=== PATIENT | female | born 1955 | race African-American/Black ===

== ENCOUNTER 2017-01-04 09:27 | Emergency (ER) | payer MEDICARE ==
[~2017-01-04] VITALS: Ht 154.9 cm; Wt 81.6 kg
[~2017-01-04 09:27] MED LIST: BENZ100C PO; PRED50TA PO; RISP2TAB33 PO
[2017-01-04 09:35] VITALS: BP 130/74
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
[2017-01-04 10:02] LABS: BILIRUBIN,URINE NEGATIVE (NEG); GLUCOSE,URINE NEGATIVE (NEG); NITRITE,URINE NEGATIVE (NEG); PH,URINE 5.5; PROTEIN,URINE NEGATIVE (NEG-TRACE); UROBILINOGEN,URINE 0.2 mg/dL (0.2 mg/dL)
[2017-01-04 10:07] LABS: SQUAMOUS EPITHELIAL CELL,UR MANY /LPF
[2017-01-04 10:08] LABS: BACTERIA,URINE FEW /HPF (0-FEW); RBC,URINE OCC /HPF (0-2)
== END 2017-01-04 10:18 | disposition home or self-care (01) ==
LOC: ER 09:27
DX: N89.8 Other specified noninflammatory disorders of vagina (principal); J45.909 Unspecified asthma, uncomplicated; F20.9 Schizophrenia, unspecified; F43.10 Post-traumatic stress disorder, unspecified; G35 Multiple sclerosis; Z88.5 Allergy status to narcotic agent; Z88.1 Allergy status to other antibiotic agents
CPT/HCPCS: 81001; 87491; 87591; 99284

== ENCOUNTER 2017-03-06 10:36 | Emergency (ER) | payer MEDICARE ==
[~2017-03-06 10:36] MED LIST changes: +CEPH500T PO
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
[2017-03-06 11:40] LABS: BILIRUBIN,URINE NEGATIVE (NEG); GLUCOSE,URINE NEGATIVE (NEG); NITRITE,URINE NEGATIVE (NEG); PH,URINE 5.5; PROTEIN,URINE NEGATIVE (NEG-TRACE); UROBILINOGEN,URINE 0.2 mg/dL (0.2 mg/dL)
[2017-03-06 11:46] LABS: SQUAMOUS EPITHELIAL CELL,UR MANY /LPF
[2017-03-06 11:47] LABS: BACTERIA,URINE FEW /HPF (0-FEW); RBC,URINE 0 /HPF (0-2)
[2017-03-06 13:25] VITALS: BP 182/82
--- NOTE | 2017-03-09 11:07 | VNOTE ---
CALL BACK NOTE CALL BACK Microbiology 03/06/17 Wet Prep - Final, Complete 03/06/17 Urine Culture - Final, Complete 03/06/17 Urine Culture Result 1 (JACINDA) - Final, Complete 03/06/17 Antimicrobic Susceptibility - Final, Complete Notified the patient at area code a [phone] spoke with her in regards to her urine culture coming back positive. Patient will be placed on Macrobid one tablet twice a day for the next 7 days. A total of 14 was called into [facility] at [address] [place] [address] in [facility]. SONIA LÓPEZ APRN Mar 09, 2017 11:07
== END 2017-03-06 13:32 | disposition home or self-care (01) ==
LOC: ER 10:36
DX: N89.8 Other specified noninflammatory disorders of vagina (principal); T74.21XA Adult sexual abuse, confirmed, initial encounter; F20.9 Schizophrenia, unspecified; J45.909 Unspecified asthma, uncomplicated; I10 Essential (primary) hypertension; G35 Multiple sclerosis; F43.10 Post-traumatic stress disorder, unspecified; H54.7 Unspecified visual loss; Z88.5 Allergy status to narcotic agent; Z88.1 Allergy status to other antibiotic agents; Y07.9 Unspecified perpetrator of maltreatment and neglect
CPT/HCPCS: 81001; 87086; 99284; Q0111; 87186; 87491; 87591

== ENCOUNTER → 2018-07-25 | Outpatient (CLI) | payer BC ==
--- NOTE | 2018-07-26 10:11 | RAD ---
DATE: 07/25/2018 EXAM: MAMMO AGAPITO SCREENING BILATERAL HISTORY: Routine screening COMPARISON: 05/31/2016 This study was interpreted with the benefit of Computerized Aided Detection (CAD). Breast Density: HETERO The breast parenchyma is heterogenously dense, which could reduce sensitivity of mammography. Breast parenchyma level C. FINDINGS: 2-D and 3-D tomosynthesis imaging was performed in CC and MLO projections. No new or enlarging breast densities are seen. No spiculated mass or architectural distortion is evident. Minimal benign type calcification is present. No suspicious microcalcifications are seen. IMPRESSION: There is no mammographic evidence of malignancy in either breast. BI-RADS CATEGORY: 2 BENIGN FINDING(S) RECOMMENDED FOLLOW-UP: 12M 12 MONTH FOLLOW-UP PQRS compliance statement: Patient information was entered into a reminder system with a target due date for the next mammogram. Mammography is a sensitive method for finding small breast cancers, but it does not detect them all and is not a substitute for careful clinical examination. A negative mammogram does not negate a clinically suspicious finding and should not result in delay in biopsying a clinically suspicious abnormality. "Our facility is accredited by the [employer] Mammography Program."
== END | disposition home or self-care (01) ==
LOC: MAMMO 13:28
PROVIDERS: ATTEND Family Medicine
DX: Z12.31 Encounter for screening mammogram for malignant neoplasm of breast (principal); R92.8 Other abnormal and inconclusive findings on diagnostic imaging of breast
CPT/HCPCS: 77063; 77067

== ENCOUNTER → 2018-10-25 | Day surgery (SDC) | payer BC ==
[~2018-10-25] MED LIST changes: +ASPI325T8 PO; +BACL10TA PO; +FAMO-63 PO; +IV RINGERS,LACTATED 1000ML 1,000 ML IV SCH; +LIDOCAINE 1% PF 2 ML VIAL. ID PRN; +LIDOCAINE 2% PF 5 ML VIAL. ONE; +MIDAZOLAM HCL/PF 2 MG/2 ML VIAL. IV PRN; +NIFE30TA17 PO; +PROPOFOL 40 ML IV ONE; +fentaNYL PF VIAL 100 MCG/2 ML VIAL IV PRN
[2018-10-25 10:06] VITALS: BP 128/62
--- NOTE | 2018-10-25 13:48 | CONS ---
DATE OF CONSULTATION: 10/25/2018 REFERRING PHYSICIAN: Mj Rivera MD REASONS FOR VISIT: Dysphagia and colorectal screening. HISTORY OF PRESENT ILLNESS: This is a 63-year-old female with past medical history significant for anxiety, asthma, and hypertension, was seen for dysphagia to solids or sticky but not liquids. Upper endoscopy is recommended. Weight and appetite are stable. There has been no melena, hematemesis, and/or hematochezia. She has had some heartburn in the past. She does have a history of colonic polyps in the past and is willing to proceed with a colonoscopy today after the prep. PAST MEDICAL HISTORY: Colonic polyps, anxiety, asthma, hypertension, liver disease, schizophrenia. ALLERGIES: None. MEDICATIONS: Include aspirin, baclofen, famotidine, nifedipine, and Risperdal. FAMILY HISTORY: Significant for cerebrovascular accidents with mother and grandfather, diabetes with father, myocardial infarctions with mother and father. SOCIAL HISTORY: She is a social drinker, nonsmoker. PAST SURGICAL HISTORY: Breast surgery, eye surgery, and tubal ligation. REVIEW OF SYSTEMS: As per records. PHYSICAL EXAMINATION: VITAL SIGNS: Temperature is 97.8, pulse 70, respiratory rate 18. HEENT: Normocephalic and atraumatic head. Pupils and extraocular muscles are not tested. Sclerae are anicteric. NECK: Supple. LUNGS: Clear. CARDIOVASCULAR: Reveals an S1, S2. No S3, S4, or appreciable murmur. ABDOMEN: Reveals soft abdomen, normal bowel sounds without appreciable hepatosplenomegaly. IMPRESSION: 1. Dysphagia, etiology to be determined. Differential includes Schatzki ring, malignancy, achalasia, eosinophilic esophagitis, Kwan's, and/or peptic stricture. EGD with possible biopsy and dilatation will be pursued. 2. Colorectal screening with history of colonic polyps. Surveillance exam is recommended. Risks and benefits were discussed. The patient is willing to proceed. MAGDY DIMAS MD DR: AUBRIE/annmarie JOB#: [id number] / [id number]
== END ==
LOC: ENDOS 08:29
PROVIDERS: ATTEND Internal Medicine Gastroenterology
DX: K57.30 Diverticulosis of large intestine without perforation or abscess without bleeding (principal); K22.2 Esophageal obstruction; K64.0 First degree hemorrhoids; F41.9 Anxiety disorder, unspecified; J45.909 Unspecified asthma, uncomplicated; I10 Essential (primary) hypertension; Z72.89 Other problems related to lifestyle; Z86.010 Personal history of colon polyps
CPT/HCPCS: 43235; 43450; 45378; J2001; J2704

== ENCOUNTER → 2020-10-11 | Outpatient (CLI) | payer BC ==
[2018-10-25 10:06] VITALS: BP 128/62
[~2020-10-11] MED LIST changes: -IV RINGERS,LACTATED 1000ML 1,000 ML IV SCH; -LIDOCAINE 1% PF 2 ML VIAL. ID PRN; -LIDOCAINE 2% PF 5 ML VIAL. ONE; -MIDAZOLAM HCL/PF 2 MG/2 ML VIAL. IV PRN; -NIFE30TA17 PO; +NIFE30TA95 PO; -PROPOFOL 40 ML IV ONE; -fentaNYL PF VIAL 100 MCG/2 ML VIAL IV PRN
--- NOTE | 2020-10-11 17:56 | RAD ---
DATE: 10/11/2020 EXAM: MAMMO AGAPITO SCREENING BILATERAL HISTORY: Screening COMPARISON: 07/25/2018 and 05/31/2026 This study was interpreted with the benefit of Computerized Aided Detection (CAD). Breast Density: HETERO The breast parenchyma is heterogenously dense, which could reduce sensitivity of mammography. Breast parenchyma level C. FINDINGS: No mass, suspicious calcification, or architectural distortion in either breast. IMPRESSION: No evidence of malignancy. BI-RADS CATEGORY: 1 NEGATIVE RECOMMENDED FOLLOW-UP: 12M 12 MONTH FOLLOW-UP PQRS compliance statement: Patient information was entered into a reminder system with a target due date for the next mammogram. Mammography is a sensitive method for finding small breast cancers, but it does not detect them all and is not a substitute for careful clinical examination. A negative mammogram does not negate a clinically suspicious finding and should not result in delay in biopsying a clinically suspicious abnormality. "Our facility is accredited by the [employer] Mammography Program."
== END ==
LOC: MAMMO 12:38
PROVIDERS: ATTEND Family Medicine
DX: Z12.31 Encounter for screening mammogram for malignant neoplasm of breast (principal); N64.89 Other specified disorders of breast
CPT/HCPCS: 77063; 77067